=== PATIENT | male | born 1990 | race Two or more races ===

== ENCOUNTER 2017-04-02 06:48 | Emergency (ER) | payer MEDICAID ==
[~2017-04-02] VITALS: Ht 165.1 cm; Wt 99.8 kg
[2017-04-02 07:27] VITALS: BP 155/116
== END 2017-04-02 08:34 | disposition home or self-care (01) ==
LOC: ER 06:48
DX: S40.011A Contusion of right shoulder, initial encounter (principal); W22.8XXA Striking against or struck by other objects, initial encounter; Y93.89 Activity, other specified; Y99.0 Civilian activity done for income or pay; Y92.69 Other specified industrial and construction area as the place of occurrence of the external cause
CPT/HCPCS: 73030